=== PATIENT | female | born 1965 | race Caucasian/White ===

== ENCOUNTER 2018-08-18 14:30 | Emergency (ER) | payer OTHER ==
[~2018-08-18 14:30] MED LIST: ALLERGY10 M1 PO; ANAPROX DS550 MG PO; BIAXIN500 MG PO; CELEXA40 MG PO; KLONOPIN1 MG PO
[2018-08-18] MEDS ORDERED: DELTASONE20 M1 PO ×2 (14:59→15:00)
== END 2018-08-18 15:07 | disposition home or self-care (01) ==
LOC: ED 14:30
DX: T78.1XXA Other adverse food reactions, not elsewhere classified, initial encounter (principal); L29.8 Other pruritus; X58.XXXA Exposure to other specified factors, initial encounter; Z79.899 Other long term (current) drug therapy

== ENCOUNTER → 2019-02-22 | Outpatient (CLI) | payer OTHER ==
[~2019-02-22] MED LIST changes: +DELTASONE20 M1 PO
[2019-02-22 08:54] LABS: HEMATOCRIT 45.6 % (37.0-47.0); HEMOGLOBIN 15.2 g/dl (12.0-16.0); MEAN CELL VOLUME 96.8 fl (81.0-99.0); MEAN CORPUSCULAR HGB 32.3 pg (27.0-31.0); MEAN CORPUSCULAR HGB CONC 33.3 g/dl (33.0-37.0); MEAN PLATELET VOLUME 9.7 fl (9.6-12.3); RED BLOOD COUNT 4.71 10*6/uL (4.10-5.10); WHITE BLOOD COUNT 5.1 10*3/uL (4.8-10.8)
[2019-02-22 09:18] LABS: ALBUMIN 3.7 gm/dl (3.1-4.5); ALKALINE PHOSPHATASE 101 U/L (45-117); BUN 13 mg/dl (7-24); CHLORIDE 108 mmol/L (98-107); CHOLESTEROL 184 mg/dL (<200); CREATININE 0.68 mg/dL (0.55-1.02); HDL CHOLESTEROL 63 mg/dl (40-60); LDL CHOLESTEROL 107 mg/dL (9-159); POTASSIUM 3.9 mmol/L (3.5-5.1); SGOT/AST 17 IU/L (3-35); SGPT/ALT 17 U/L (12-78); SODIUM 141 mmol/L (136-145); TOTAL PROTEIN 6.9 gm/dL (6.4-8.2); TRIGLYCERIDES 68 mg/dl (<150); VLDL CHOLESTEROL 14 mg/dL (6-40)
== END | disposition home or self-care (01) ==
LOC: LAB 08:03
PROVIDERS: Registered Nurse Flight
DX: Z00.00 Encounter for general adult medical examination without abnormal findings (principal)

== ENCOUNTER 2023-08-04 17:05 | Emergency (ER) | payer OTHER ==
[~2023-08-04] VITALS: Ht 157.4 cm; Wt 49.9 kg
[2023-08-04 20:43] LABS: BASO % 0.5 % (0.0-1.0); LYMPH # 0.5 10*3/uL (1.3-4.4); LYMPH % 12.3 % (27.0-41.0); MEAN CELL VOLUME 94.9 fl (81.0-99.0); MEAN CORPUSCULAR HGB 31.1 pg (27.0-31.0); MEAN CORPUSCULAR HGB CONC 32.8 g/dl (33.0-37.0); MEAN PLATELET VOLUME 8.9 fl (9.6-12.3); MONO # 0.5 10*3/uL (0.1-1.0); MONO % 13.9 % (3.0-9.0); NEUT # 2.8 10*3/uL (2.3-7.9); PLATELET COUNT AUTOMATED 194 10*3/uL (130-400); RED BLOOD COUNT 4.53 10*6/uL (4.10-5.10); WHITE BLOOD COUNT 3.8 10*3/uL (4.8-10.8)
[2023-08-04 20:54] LABS: ACT PARTIAL THROMBO TIME 30.5 SECONDS (20.0-32.1)
[2023-08-04 21:00] LABS: ALKALINE PHOSPHATASE 85 U/L (46-116); BUN 8 mg/dl (9-23); CHLORIDE 106 mmol/L (98-107); LIPASE 27 U/L (12-53); POTASSIUM 3.8 mmol/L (3.4-5.1); SGPT/ALT 9 U/L (5-49); TOTAL PROTEIN 7.1 gm/dL (6.0-8.0)
[2023-08-04] MEDS ORDERED: PREDNISONE20 M1 PO (22:58)
[2023-08-04] MEDS ORDERED: AMOX-CLAV 875-1 EACH PO (22:58)
[2023-08-04] MEDS ORDERED: predniSONE 20 MG TAB PO ONE (23:00)
[2023-08-04] MEDS ORDERED: Amoxicillin/Clavulanate Pota 875 MG TAB PO ONE (23:00)
== END 2023-08-04 23:10 | disposition home or self-care (01) ==
LOC: ED 17:05
PROVIDERS: Internal Medicine
DX: J44.1 Chronic obstructive pulmonary disease with (acute) exacerbation (principal); Z20.822 Contact with and (suspected) exposure to COVID-19; F17.210 Nicotine dependence, cigarettes, uncomplicated; Z88.8 Allergy status to other drugs, medicaments and biological substances; Z79.899 Other long term (current) drug therapy; Z98.51 Tubal ligation status; Z53.29 Procedure and treatment not carried out because of patient's decision for other reasons